=== PATIENT | female | born 1975 | race Hispanic/Latino ===

== ENCOUNTER 2017-12-20 06:14 | Day surgery (SDC) | payer OTHER ==
[2017-12-14 13:36] LABS: Urine Appearance CLEAR; Urine Bilirubin NEGATIVE (NEG); Urine Blood NEGATIVE (NEG); Urine Color YELLOW; Urine Glucose NEGATIVE (NEG); Urine Protein NEGATIVE (NEG); Urine Specific Gravity <=1.005 (1.005-1.030); Urine Urobilinogen 0.2 mg/dL (0.2-1.0)
[2017-12-14 13:44] LABS: Urine Microscopic Reflex NO UMIC
[2017-12-14 13:47] LABS: Absolute Lymphocytes (CBC) 1.5 K/uL (0.7-4.9); Absolute Monocytes 0.5 K/uL (0.1-1.3); Absolute Neutrophil 3.6 K/uL (1.8-8.0); Basophils % 0.9 % (0-1.3); Eosinophils % 1.1 % (0-4.4); MCH 30.3 pg (27.0-35.0); MCV 89.4 fL (80-100); MPV 8.2 fL (7.6-11.3); Monocytes % 8.5 % (3.3-12.3); RBC Red Blood Cell Count 4.92 M/uL (3.86-4.86)
[2017-12-20] MEDS ORDERED: SCOPOLAMINE HYDROBROMIDE PATCH TD ONE (06:44)
[2017-12-20] MEDS ORDERED: Ringers Lactate 1,000 ML IV ONE ×2 (06:44→09:03)
[2017-12-20] MEDS ORDERED: PROPOFOL 200 MG/20 ML VIAL IV ONE (07:22)
[2017-12-20] MEDS ORDERED: ROCURONIUM 50 MG/5 ML VIAL IV ONE (07:22)
[2017-12-20] MEDS ORDERED: GLYCOPYRROLATE 0.2 MG/ML SYR ONE (07:23)
[2017-12-20] MEDS ORDERED: LIDOCAINE 2% MPF 5 ML VIAL ONE (07:23)
[2017-12-20] MEDS ORDERED: FENTANYL CITR 250 MCG/5 ML ONE (07:24)
[2017-12-20] MEDS ORDERED: MIDAZOLAM HCL 2 MG/2 ML INJ ONE (07:27)
[2017-12-20] MEDS: CEFAZOLIN/SWI 1gm 1 GM/10 ML SYR ONE ×3 (07:40→08:00)
[2017-12-20] MEDS ORDERED: KETOROLAC 30 MG/ML INJ ONE (08:59)
[2017-12-20] MEDS ORDERED: LABETALOL HCL 100 MG/20 ML ONE (09:23)
[2017-12-20] MEDS: MEPERIDINE HCL 50 MG/ML AMP ONE ×4 (09:29→09:54)
[2017-12-20] MEDS ORDERED: HYDROCODONE/APAP 5/325 MG TAB ONE (11:49)
[2017-12-20] MEDS: Ringers Lactate 1,000 ML IV ONE ×2 (12:31→13:30)
== END 2017-12-20 13:30 | disposition home or self-care (01) ==
LOC: OR 06:14
PROVIDERS: ATTEND Obstetrics & Gynecology
PROC: 0U5B8ZZ Destruction of Endometrium, Via Natural or Artificial Opening Endoscopic (ICD-10-PCS; 2017-12-20)
PROC: 0UT74ZZ Resection of Bilateral Fallopian Tubes, Percutaneous Endoscopic Approach (ICD-10-PCS; principal; 2017-12-20 07:30)
DX: N92.1 Excessive and frequent menstruation with irregular cycle (principal); N94.6 Dysmenorrhea, unspecified; N87.9 Dysplasia of cervix uteri, unspecified; N83.201 Unspecified ovarian cyst, right side; K21.9 Gastro-esophageal reflux disease without esophagitis; F17.210 Nicotine dependence, cigarettes, uncomplicated; Z80.41 Family history of malignant neoplasm of ovary; Z80.3 Family history of malignant neoplasm of breast; Z82.49 Family history of ischemic heart disease and other diseases of the circulatory system
CPT/HCPCS: 36415; 81003; 81025; 85025; 86850; 86900; 86901; 88302; J0690; J2175; J2250